=== PATIENT | male | born 1930 | race Caucasian/White ===

== ENCOUNTER 2016-10-03 12:10 | Emergency (ER) | payer MEDICARE ==
[~2016-10-03] VITALS: Ht 177.8 cm; Wt 72.6 kg
[2016-10-03] MEDS ORDERED: OMEG1CAP74 PO (12:26)
[2016-10-03] MEDS ORDERED: DOCU100C36 PO (12:26)
[2016-10-03] MEDS ORDERED: SIMV10TA6 PO (12:26)
[2016-10-03] MEDS ORDERED: GINK60TA2 PO (12:26)
[2016-10-03] MEDS ORDERED: ACET325T53 PO (12:26)
[2016-10-03] MEDS ORDERED: TAMS-3 PO (12:26)
[2016-10-03] MEDS ORDERED: ASPI-605 PO (12:26)
[2016-10-03] MEDS ORDERED: GABA-534 PO (12:26)
[2016-10-03] MEDS ORDERED: CHOL200026 PO (12:26)
[2016-10-03] MEDS ORDERED: PANT20TA3 PO (12:26)
[2016-10-03] MEDS ORDERED: METO25TA6 PO (12:26)
[2016-10-03] MEDS ORDERED: AMIO200T2 PO (12:26)
[2016-10-03] MEDS ORDERED: MULT-39 PO (12:26)
--- NOTE | 2016-10-03 14:42 | NUR ---
ALL MD ORDERS COMPLETED. PT POSITIONED FOR COMFORT.
--- NOTE | 2016-10-03 15:54 | NUR ---
mse completed, pt d/c'd to [facility] via private ambulance. [facility] report to [facility]. copy of all tests and aci given.
[2016-10-03 15:57] VITALS: BP 119/60
== END 2016-10-03 15:57 | disposition home or self-care (01) ==
LOC: ER 12:10
DX: S51.001A Unspecified open wound of right elbow, initial encounter (principal); S09.90XA Unspecified injury of head, initial encounter; I65.29 Occlusion and stenosis of unspecified carotid artery; I10 Essential (primary) hypertension; Z79.82 Long term (current) use of aspirin; W18.39XA Other fall on same level, initial encounter; Y93.89 Activity, other specified; Y99.8 Other external cause status; Y92.89 Other specified places as the place of occurrence of the external cause
CPT/HCPCS: 70450; 72125; 72192; 99284; A4663